=== PATIENT | male | born 1980 | race Caucasian/White ===

== ENCOUNTER 2016-08-06 16:42 | Emergency (ER) ==
[2016-08-06 16:46] VITALS: BP 124/71; TEMP 98.4; BMI 27.3
[2016-08-06] MEDS ORDERED: MORPHINE 4 MG/ML SYRINGE IM STA (16:59)
[2016-08-06] MEDS ORDERED: ZOFRAN 4 MG/2 ML IM STA (16:59)
[2016-08-06] MEDS ORDERED: SILVADENE CREAM TP STA (17:06)
--- NOTE | 2016-08-06 17:10 | ED.PDOC ---
General ED Provider: Dr. DAREK PARMAR Chief Complaint: Burn Stated Complaint: burn right forearm Time Seen by Physician: 17:00 (limited to area as noted on photo ) Mode of Arrival: Walk-In Information Source: Patient Primary Care Provider: GWYN LANDAVERDE Nursing and Triage Documentation Reviewed and Agree: Yes (flexor side only) Skin Complaint Exam - Burn Injury Complaint/Exam Onset/Duration: 1 hr Initial Severity: Mild Current Severity: Mild Location: RUE (see photos) Character: Direct thermal contact Alleviating: Reports: Cool soaks Associated Signs and Symptoms: Denies: Short of air, Cough, Chest pain, Vision abnormality, LOC/Duration, Additional trauma Skin: Dry Singed Facial Hair: No Singed Nasal Hair: No Stridor Present: No Respiratory Distress Present: No Circumferential Involvement to Trunk: No Circumferential Involvement to Extremity: No Entrance Wound Present: No Exit Wound Present: No Burn Location (Adult): Right Arm (Front) Estimated Burned Body Surface Area: 4.5 Differential Diagnoses: Contact Thermal Burn Review of Systems - Review Of Systems Constitutional: Reports: No symptoms Eyes: Reports: No symptoms Ears, Nose, Mouth, Throat: Reports: No symptoms Respiratory: Reports: No symptoms Cardiac: Reports: No symptoms GI: Reports: No symptoms : Reports: No symptoms Musculoskeletal: Reports: No symptoms Skin: Reports: No symptoms Neurological: Reports: No symptoms Endocrine: Reports: No symptoms Hematologic/Lymphatic: Reports: No symptoms All Other Systems: Reviewed and Negative Past Medical History - Past Medical History Endocrine: Reports: None Cardiovascular: Reports: None Respiratory: Reports: None Hematological: Reports: None Gastrointestinal: Reports: None Genitourinary: Reports: None Neuro/Psych: Reports: None Musculoskeletal: Reports: None Cancer: Reports: None - Surgical History General Surgical History: Reports: Appendectomy, Tonsillectomy, Adenoidectomy - Family History Family History: Reports: Unknown - Social History Smoking Status: Current every day smoker Hx Substance Use: No Alcohol Screening: None - Immunizations Tetanus Shot up to Date: Yes (3 months ago) Physical Exam - Physical Exam Appearance: Well-appearing, No pain distress, Well-nourished Eyes: EULALIO, EOMI, Conjunctiva clear ENT: Ears normal, Nose normal, Oropharynx normal Respiratory: Airway patent, Breath sounds clear, Breath sounds equal, Respirations nonlabored Cardiovascular: RRR, Pulses normal, No rub, No murmur GI/: Soft, Nontender, No masses, Bowel sounds normal, No Organomegaly Musculoskeletal: Normal strength, ROM intact, No edema, No calf tenderness Skin: Warm, Dry (see forearm photos) Neurological: Sensation intact, Motor intact, Reflexes intact, Cranial nerves intact, Alert, Oriented Psychiatric: Affect appropriate, Mood appropriate Critical Care Note - Critical Care Note Total Time (mins): 0 Course - Course Orders, Labs, Meds: Orders Category Date Time Status Morphine Sulfate [Morphine 4 mg/ml Syringe] MEDS 08/06/16 16:59 Discontinued 4 mg IM ONCE STA Ondansetron HCl/Pf [Zofran 4 mg/2 ml] MEDS 08/06/16 16:59 Discontinued 4 mg IM ONCE STA Silver Sulfadiazine [Silvadene Cream] MEDS 08/06/16 17:06 Stat 1 applic TP ONCE STA Medications Discontinued Medications Generic Name Dose Route Start Last Admin Trade Name Freq PRN Reason Stop Dose Admin Morphine Sulfate 4 mg 08/06/16 16:59 Morphine 4 Mg/Ml Syringe IM 08/06/16 17:00 ONCE STA Ondansetron HCl 4 mg 08/06/16 16:59 Zofran 4 Mg/2 Ml IM 08/06/16 17:00 ONCE STA Silver Sulfadiazine 1 applic 08/06/16 17:06 Silvadene Cream TP 08/06/16 17:07 ONCE STA Vital Signs: Temp Pulse Resp BP Pulse Ox 08/06/16 16:43 98.4 F 81 16 124/71 96 Departure - Departure Time of Disposition: 17:10 Disposition: HOME SELF-CARE Discharge Problem: Burn Burn of right forearm Qualifiers: Encounter type: initial encounter Burn degree: first degree Qualifier Code: ( T22.111A) Burn of first degree of right forearm, initial encounter Instructions: Acute Wound Care (ED), Superficial Burn (ED) Condition: Good Pt referred to PMD for follow-up: No Additional Instructions: Please call your Family Physician as soon as possible to schedule a follow-up appointment. Prescriptions: Hydrocodone/Acetaminophen [Cocoa 5-325 Tablet] 1 each PO Q6HR PRN #12 tablet PRN Reason: PAIN Allergies/Adverse Reactions: Allergies fexofenadine HCl [From Lulú] Adverse Reaction (Verified 08/06/16 16:46) loratadine [From Claritin] Adverse Reaction (Verified 08/06/16 16:46) Penicillins Adverse Reaction (Verified 08/06/16 16:46) Home Medications: Ambulatory Orders Hydrocodone/Acetaminophen [Cocoa 5-325 Tablet] 1 each PO Q6HR PRN #12 tablet
== END 2016-08-06 17:25 | disposition home or self-care (01) ==
LOC: ED 16:42
DX: T22.111A Burn of first degree of right forearm, initial encounter (principal); F17.210 Nicotine dependence, cigarettes, uncomplicated
CPT/HCPCS: 99283

== ENCOUNTER 2016-10-17 17:45 | Emergency (ER) ==
[2016-10-17 17:52] VITALS: BP 120/64; TEMP 101.2; BMI 23.9
--- NOTE | 2016-10-17 17:57 | ED.PDOC ---
General ED Provider: Dr. SUSAN MICHAUD JR Chief Complaint: Sore Throat Stated Complaint: onset throat pain when attempting to drink liquids--developed chills and weakness--son had sore throat 1 weeks ago[ End ]SINCE YESTERDAY. 101.2 103 16 96% 120/64 7/10 also concerned about irregular chan spot on inferior tip of left scapula no visible on exam is itchy per patient for a year Time Seen by Physician: 17:56 Mode of Arrival: Walk-In Information Source: Patient Exam Limitations: No limitations Primary Care Provider: GWYN LANDAVERDE Nursing and Triage Documentation Reviewed and Agree: No Review of Systems - Review Of Systems Constitutional: Reports: Fever Eyes: Reports: No symptoms Ears, Nose, Mouth, Throat: Reports: Throat pain Respiratory: Reports: Cough Cardiac: Reports: No symptoms GI: Reports: No symptoms : Reports: No symptoms Musculoskeletal: Reports: No symptoms Skin: Reports: Lesions Neurological: Reports: No symptoms Endocrine: Reports: No symptoms Hematologic/Lymphatic: Reports: No symptoms, Swollen glands All Other Systems: Other Past Medical History - Past Medical History Endocrine: Reports: None Cardiovascular: Reports: None Respiratory: Reports: None Hematological: Reports: None Gastrointestinal: Reports: None Genitourinary: Reports: None Neuro/Psych: Reports: None, Other ( HEAD INJURY) Musculoskeletal: Reports: None Cancer: Reports: None - Surgical History General Surgical History: Reports: Appendectomy, Tonsillectomy, Adenoidectomy - Family History Family History: Reports: Other (SON WITH SORE THROAT END OF SEPTEMBER 2016), Unknown - Social History Smoking Status: Current every day smoker, Heavy tobacco smoker Hx Substance Use: No Alcohol Screening: None Physical Exam - Physical Exam Appearance: Well-appearing Pain Distress: Moderate Eyes: EULALIO, EOMI, Conjunctiva clear ENT: Ears normal, Nose normal, Oropharynx normal, Erythema Neck: Supple Respiratory: Airway patent, Breath sounds equal, Breath sounds diminished, Respirations nonlabored, Rhonchi, Wheezes Cardiovascular: RRR, Pulses normal, No rub, No murmur GI/: Soft, Nontender, No masses, Bowel sounds normal, No Organomegaly Musculoskeletal: Normal strength, ROM intact, No edema, No calf tenderness Skin: Warm, Dry, Normal color Neurological: Sensation intact, Motor intact, Reflexes intact, Cranial nerves intact, Alert, Oriented Psychiatric: Affect appropriate, Mood appropriate Critical Care Note - Critical Care Note Total Time (mins): 0 Course - Course Vital Signs: Temp Pulse Resp BP Pulse Ox 10/17/16 17:46 101.2 F H 103 H 16 120/64 96 Departure - Departure Time of Disposition: 18:52 Disposition: HOME SELF-CARE Discharge Problem: Sore throat symptom Instructions: Pharyngitis (ED) Condition: Good Pt referred to PMD for follow-up: Yes Additional Instructions: antibiotic until gone- zithromax may try athletes foot ointment on itchy areaof back twice a day for 2 to four weeks conider evaluation of area by computer forensics technician Prescriptions: Azithromycin [Zithromax] 250 mg PO DIRECTED #6 tablet Allergies/Adverse Reactions: Allergies fexofenadine HCl [From Lulú] Adverse Reaction (Verified 10/17/16 17:52) loratadine [From Claritin] Adverse Reaction (Verified 10/17/16 17:52) Penicillins Adverse Reaction (Verified 10/17/16 17:52) Home Medications: Ambulatory Orders Azithromycin [Zithromax] 250 mg PO DIRECTED #6 tablet 10/17/16
== END 2016-10-17 18:55 | disposition home or self-care (01) ==
LOC: ED 17:45
DX: J02.9 Acute pharyngitis, unspecified (principal); F17.210 Nicotine dependence, cigarettes, uncomplicated
CPT/HCPCS: 87651; 87880; 99283

== ENCOUNTER 2017-02-27 10:57 | Outpatient (CLI) | END 2017-02-27 10:58 | LOC: AMBL 10:57 | PROVIDERS: ATTEND Family Medicine | DX: Z04.1 Encounter for examination and observation following transport accident (principal); V59.40XA Driver of pick-up truck or van injured in collision with unspecified motor vehicles in traffic accident, initial encounter ==

== ENCOUNTER 2017-04-27 11:41 | Emergency (ER) ==
[2017-04-27 11:43] VITALS: BP 140/86; TEMP 97.8; BMI 26.6
--- NOTE | 2017-04-27 11:52 | ED.PDOC ---
General ED Provider: Dr. DANILO ESCOBEDO Chief Complaint: Puncture Wound Stated Complaint: Flory nail gun went off and shot flory nail through left thumb distal phalanx. Time Seen by Physician: 11:50 Mode of Arrival: Walk-In Information Source: Patient Exam Limitations: No limitations Primary Care Provider: GWYN LANDAVERDE Nursing and Triage Documentation Reviewed and Agree: Yes Skin Complaint Exam - Skin/Soft Tissue Complaint/Exam Onset/Duration: 1 hour Symptoms Are: Still present Timing: Constant Initial Severity: Severe Current Severity: Moderate Location: left thumb distal phalanx Character: Reports: Painful Aggravating: Reports: Medications Alleviating: Reports: None Related Surgical History: Reports: None Recent Exposure to Others w/Similar Symptoms: No Skin Findings: Present: Other (FB (nail) in left thumb distal phalanx) Joint Tenderness Present: No Differential Diagnoses: Foreign Body Review of Systems - Review Of Systems Constitutional: Reports: No symptoms Musculoskeletal: Reports: Muscle pain Skin: Reports: Other (puncture wounds at entry & exit points of left thumb) Neurological: Reports: No symptoms All Other Systems: Reviewed and Negative Past Medical History - Past Medical History Previously Healthy: Yes Endocrine: Reports: None Cardiovascular: Reports: None Respiratory: Reports: None Hematological: Reports: None Gastrointestinal: Reports: None Genitourinary: Reports: None Neuro/Psych: Reports: None, Other ( HEAD INJURY) Musculoskeletal: Reports: None Cancer: Reports: None - Surgical History General Surgical History: Reports: Appendectomy, Tonsillectomy, Adenoidectomy - Family History Family History: Reports: Other (SON WITH SORE THROAT END OF SEPTEMBER 2016), Unknown - Social History Smoking Status: Current every day smoker, Heavy tobacco smoker Hx Substance Use: No Alcohol Screening: None Lives: With family - Immunizations Tetanus Shot up to Date: Yes (2 years ago) Influenza Vaccine within 12 Months: No Pneumococcal Vaccine up to Date: No Physical Exam - Physical Exam Appearance: Well-appearing, No pain distress, Well-nourished Ill-appearing: None Pain Distress: None Musculoskeletal: Normal strength, ROM intact, No edema, No calf tenderness Skin: Warm (nail penetrating through left thumb distal phalanx, lateral side - no evidence of caesar involvement), Dry, Normal color Neurological: Sensation intact, Motor intact, Reflexes intact, Cranial nerves intact, Alert, Oriented Psychiatric: Affect appropriate, Mood appropriate Procedures - Foreign Body Removal Location of Foreign Object: left thumb distal phalanx Foreign Object: flory nail Depth of Object: through thumb Type of Anesthesia: Digital Medication Used: Yes: Lidocaine (1% pain) Prep: Scrub (alcoholwipes) Irrigation: No Skin Incised: No Instruments Used: Yes: Other (pliers, wire steward to remove nail head) Foreign Body Identified and Removed: Yes (wound dressed with MELISSA & gauze dressings) Critical Care Note - Critical Care Note Total Time (mins): 0 Course - Course Orders, Labs, Meds: Orders Category Date Time Status Lidocaine HCl/Pf [Lidocaine HCl 1% Sdv] MEDS 04/27/17 12:00 Discontinued 5 ml .ROUTE .STK-MED ONE Vital Signs: Temp Pulse Resp BP Pulse Ox 04/27/17 11:42 97.8 F 108 H 20 140/86 97 Departure - Departure Time of Disposition: 13:05 Disposition: HOME SELF-CARE Discharge Problem: Foreign body of left thumb Instructions: Puncture Wound (ED) Condition: Good Pt referred to PMD for follow-up: No (see doctor if any problems) Allergies/Adverse Reactions: Allergies fexofenadine HCl [From Lulú] Adverse Reaction (Verified 04/27/17 11:43) loratadine [From Claritin] Adverse Reaction (Verified 04/27/17 11:43) Penicillins Adverse Reaction (Verified 04/27/17 11:43) Home Medications: Ambulatory Orders Cephalexin [Keflex] 500 mg PO BID #10 capsule 04/27/17 Disposition Discussed With: Patient
[2017-04-27] MEDS ORDERED: LIDOCAINE HCL 1% SDV ONE (12:00)
== END 2017-04-27 13:33 | disposition home or self-care (01) ==
LOC: ED 11:41
DX: S61.042A Puncture wound with foreign body of left thumb without damage to nail, initial encounter (principal); W45.0XXA Nail entering through skin, initial encounter; W27.8XXA Contact with other nonpowered hand tool, initial encounter; F17.210 Nicotine dependence, cigarettes, uncomplicated
CPT/HCPCS: 99283

== ENCOUNTER 2017-08-30 07:44 | Emergency (ER) | payer OTHER ==
[2017-08-30 07:44] VITALS: BMI 26.6
[2017-08-30 07:49] VITALS: BP 123/68; TEMP 97.4
--- NOTE | 2017-08-30 07:54 | ED.PDOC ---
General ED Provider: Dr. DAREK PARMAR Chief Complaint: Eye Problem Stated Complaint: right eye red Time Seen by Physician: 08:00 Mode of Arrival: Walk-In Information Source: Patient Exam Limitations: No limitations Primary Care Provider: GWYN LANDAVERDE Nursing and Triage Documentation Reviewed and Agree: Yes Reviewed sepsis parameters & appropriate labs ordered?: Yes System Inflammatory Response Syndrome: Not Applicable Sepsis Protocol: For patient's 13 years and over: Temp is 96.8 and below OR 101 and greater Pulse >90 BPM Resp >20/minute Acutely Altered Mental Status Are patient's symptoms suggestive of a new infection, such as: -Pneumonia -Skin, Soft Tissue -Endocarditis -UTI -Bone, Joint Infection -Implantable Device -Acute Abdominal Infection -Wound Infection -Meningitis -Blood Stream Catheter Infection -Unknown System Inflammatory Response Syndrome: Not Applicable EENT Complaint Exam - Eye Complaint/Exam Symptoms Are: Still present Timing: Intermittent Initial Severity: Mild Current Severity: Mild Location: Right Character: Reports: Dull Aggravating: Reports: None Alleviating: Reports: None Associated Signs and Symptoms: Denies: Photophobia, Clear drainage, Purulent drainage, Vision impairment, Fever, Swelling Related History: Reports: Similar episode Eye Surgical History: Reports: None Penetrating Injury Risk Factors: None Globe Rupture Risk Factors: None Acute Glaucoma Risk Factors: None Optic Artery Occlusion Risk Factors: None Visual Acuity Right Eye: normal Visual Acuity Left Eye: normal Visual Field: Normal Extraocular Movement: Normal Orbit Findings: Normal Globe Findings: Nonintact Lid Findings: Normal Conjunctival Findings: Red (left) Corneal Findings: Clear Differential Diagnoses: Conjunctivitis (left side ) Review of Systems - Review Of Systems Constitutional: Reports: No symptoms Eyes: Reports: Inflammation (right eye) Ears, Nose, Mouth, Throat: Reports: No symptoms Respiratory: Reports: No symptoms Cardiac: Reports: No symptoms GI: Reports: No symptoms : Reports: No symptoms Musculoskeletal: Reports: No symptoms Skin: Reports: No symptoms Neurological: Reports: No symptoms Endocrine: Reports: No symptoms Hematologic/Lymphatic: Reports: No symptoms All Other Systems: Reviewed and Negative Past Medical History - Past Medical History Previously Healthy: Yes Endocrine: Reports: None Cardiovascular: Reports: None Respiratory: Reports: None Hematological: Reports: None Gastrointestinal: Reports: None Genitourinary: Reports: None Neuro/Psych: Reports: None, Other ( HEAD INJURY) Musculoskeletal: Reports: None Cancer: Reports: None - Surgical History General Surgical History: Reports: Appendectomy, Tonsillectomy, Adenoidectomy - Family History Family History: Reports: Other (SON WITH SORE THROAT END OF SEPTEMBER 2016), Unknown - Social History Smoking Status: Current every day smoker, Heavy tobacco smoker Hx Substance Use: No Alcohol Screening: None - Immunizations Tetanus Shot up to Date: Yes Influenza Vaccine within 12 Months: No Pneumococcal Vaccine up to Date: No Physical Exam - Physical Exam Appearance: Well-appearing, No pain distress, Well-nourished Eyes: Conjunctiva inflammed (left ) ENT: Ears normal, Nose normal, Oropharynx normal Respiratory: Airway patent, Breath sounds clear, Breath sounds equal, Respirations nonlabored Cardiovascular: RRR, Pulses normal, No rub, No murmur GI/: Soft, Nontender, No masses, Bowel sounds normal, No Organomegaly Musculoskeletal: Normal strength, ROM intact, No edema, No calf tenderness Skin: Warm, Dry, Normal color Neurological: Sensation intact, Motor intact, Reflexes intact, Cranial nerves intact, Alert, Oriented Psychiatric: Affect appropriate, Mood appropriate Critical Care Note - Critical Care Note Total Time (mins): 0 Course - Course Vital Signs: Temp Pulse Resp BP Pulse Ox 08/30/17 07:45 97.4 F L 76 16 123/68 99 Departure - Departure Time of Disposition: 07:55 Disposition: HOME SELF-CARE Discharge Problem: Acute conjunctivitis Instructions: Conjunctivitis (ED) Condition: Good Pt referred to PMD for follow-up: Yes IPMP verified?: No Additional Instructions: Please call your Family Physician as soon as possible to schedule a follow-up appointment.SINCE YOU HAVE HISTORY OF IRRITIS AND YOU HAVE A PINK EYE W/O PAIN IT IS BEST YOUR DO SEE YOUR EYE DOCTOR NELLY AND A RHUMATOLOGIST WELL Allergies/Adverse Reactions: Allergies fexofenadine HCl [From Lulú] Adverse Reaction (Verified 08/30/17 07:45) loratadine [From Claritin] Adverse Reaction (Verified 08/30/17 07:45) Penicillins Adverse Reaction (Verified 08/30/17 07:45) Disposition Discussed With: Patient
== END 2017-08-30 08:10 | disposition home or self-care (01) ==
LOC: ED 07:44
DX: H10.31 Unspecified acute conjunctivitis, right eye (principal); F17.210 Nicotine dependence, cigarettes, uncomplicated
CPT/HCPCS: 99282